=== PATIENT | male | born 1995 | race African-American/Black ===

== ENCOUNTER 2019-06-18 10:41 | Inpatient (IN) ==
[2019-06-18] MEDS ORDERED: PIPERACILLIN/TAZOBACTAM 3,375 MG in SODIUM CHLORIDE 0.9% 100 ML IV STA (11:01)
[2019-06-18] MEDS ORDERED: SODIUM CHLORIDE 0.9% 1,000 ML IV STA ×2 (11:01→12:02)
[2019-06-18] MEDS ORDERED: ACETAMINOPHEN 500 MG TABLET PO STA (11:01)
[2019-06-18] MEDS ORDERED: VANCOMYCIN INJ 1,000 MG in SODIUM CHLORIDE 0.9% 250 ML IV STA ×2 (11:01→13:19)
[2019-06-18 11:25] LABS: Basophils % 0.1 % (0.0-0.8); Hematocrit 38.3 VOL% (42.0-52.0); Hemoglobin 12.8 GM/DL (14.0-18.0); Immature Granulocytes % 0.9 %; Immature Granulocytes Absolute 0.08 #; Lymphocytes # 0.6 10*3/uL (1.4-4.0); Lymphocytes % 5.9 % (21.2-54.2); Mean Corpuscular HGB Conc 33.4 GM/DL (32-36); Mean Corpuscular Volume 87.8 FL (87-102); Mean Platelet Volume 10.6 FL (9.6-12.0); Monocytes % 10.1 % (1.7-12.7); Platelet Count 141 T/CUMM (130-400); Red Blood Count 4.36 MC/CUMM (3.8-5.5); Red Cell Distribution Width 13.3 % (9.3-17.3); White Blood Count 9.3 T/CUMM (4-12)
[2019-06-18 11:50] LABS: Albumin 3.6 G/DL (3.4-5.0); Bilirubin,Total 0.8 MG/DL (0.2-1.0); Calcium 8.7 MG/DL (8.5-10.1); Osmolality,Calculated 274.8 MOS/KG (273-304); Total Protein 7.8 G/DL (6.4-8.3)
[2019-06-18 12:00] LABS: Band Neutrophils 7 % (0-10); Hypochromasia 1+; Lymphocytes 7 % (20-55); Platelet Estimate Adequate; Segmented Neutrophils 75 % (50-85); Total Cells Counted 100
[2019-06-18 12:03] LABS: Apearance,Urine Slightly Hazy (Clear); Bacteria,Urine Many /HPF (Few); Bilirubin,Urine Negative (Negative); Blood, Urine Small mg/dL (Negative); Glucose,Urine (UA) Negative (Negative); Hyaline Casts,Urine 1 /LPF (0-3); Ketones,Urine 5 mg/dL (Negative); Mucus,Urine Occasional /LPF (Occasional); Nitrite,Urine Negative (Negative); Protein,Urine 30 MG/DL; RBC,Urine 53 /HPF (0-4); Squamous Epithelial Cell,Urine Occasional /HPF (0-10); Urine Color Yellow (Yellow); Urine Specific Gravity 1.015 (1.001-1.035); Urine Urobilinogen < 2.0 EU/DL (0.2-1.0); WBC,Urine 334 /HPF (0-6)
[2019-06-18 12:52] LABS: Sedimentation Rate-Westergren 30 MM/HR (0-15)
[2019-06-18] MEDS ORDERED: SODIUM CHLORIDE 0.9% 2,050 ML IV ONE (13:59)
[2019-06-18] MEDS ORDERED: ONDANSETRON 4 MG/2 ML VIAL IV PRN (14:02)
[2019-06-18 14:13] LABS: ABG Base Excess -3.2 MMOL/L (-2.5-2.5); ABG HCO3 20.7 MMOL/L (20-26); ABG Oxygen Saturation 96.5 % (95-100); ABG PCO2 33.5 MM HG (35-48); ABG PH 7.409 (7.35-7.45); ABG PO2 88.2 MM HG (80-95); ABG TCO2 21.7 MMOL/L (23-27)
[2019-06-18] MEDS: SODIUM CHLORIDE 0.9% 1,000 ML IV SCH (16:23)
[2019-06-18] MEDS: TAMSULOSIN 0.4 MG CAPSULE PO SCH (17:17)
[2019-06-18] MEDS: PIPERACILLIN/TAZOBACTAM 3,375 MG in SODIUM CHLORIDE 0.9% 100 ML IV SCH (20:46)
[2019-06-18] MEDS: HEPARIN 5,000 UNIT/1 ML VIAL SUBCUT SCH (21:34)
[2019-06-18] MEDS: ACETAMINOPHEN 325 MG TABLET PO PRN (21:40)
[2019-06-18] MEDS ORDERED: SODIUM CHLORIDE 0.9% 1,000 ML IV ONE (23:56)
[2019-06-19] MEDS: VANCOMYCIN INJ 1,000 MG in SODIUM CHLORIDE 0.9% 250 ML IV SCH ×2 (02:35→15:50)
[2019-06-19 04:43] LABS: Basophils % 0.2 % (0.0-0.8); Hematocrit 32.8 VOL% (42.0-52.0); Hemoglobin 10.7 GM/DL (14.0-18.0); Immature Granulocytes % 0.6 %; Immature Granulocytes Absolute 0.06 #; Lymphocytes # 1.2 10*3/uL (1.4-4.0); Lymphocytes % 12.7 % (21.2-54.2); Mean Corpuscular HGB Conc 32.6 GM/DL (32-36); Mean Corpuscular Volume 89.1 FL (87-102); Mean Platelet Volume 11.5 FL (9.6-12.0); Monocytes % 18.3 % (1.7-12.7); Neutrophils % 68.2 % (38.7-73.9); Platelet Count 131 T/CUMM (130-400); Red Blood Count 3.68 MC/CUMM (3.8-5.5); Red Cell Distribution Width 13.5 % (9.3-17.3); White Blood Count 9.3 T/CUMM (4-12)
[2019-06-19 05:06] LABS: Albumin 2.8 G/DL (3.4-5.0); Bilirubin,Total 1.2 MG/DL (0.2-1.0); Calcium 7.6 MG/DL (8.5-10.1); Osmolality,Calculated 281.3 MOS/KG (273-304); Total Protein 6.5 G/DL (6.4-8.3)
[2019-06-19 05:09] LABS: Band Neutrophils 10 % (0-10); Eosinophils 1 % (0-10); Hypochromasia 1+; Lymphocytes 10 % (20-55); Segmented Neutrophils 65 % (50-85); Total Cells Counted 100
[2019-06-19 05:10] LABS: Microcytosis Slight; Platelet Estimate Adequate
[2019-06-19] MEDS: ACETAMINOPHEN 325 MG TABLET PO PRN (05:24)
[2019-06-19] MEDS: PIPERACILLIN/TAZOBACTAM 3,375 MG in SODIUM CHLORIDE 0.9% 100 ML IV SCH (05:26)
[2019-06-19] MEDS: SODIUM CHLORIDE 0.9% 1,000 ML IV SCH ×4 (05:26→22:21)
[2019-06-19] MEDS: HEPARIN 5,000 UNIT/1 ML VIAL SUBCUT SCH ×3 (05:27→21:27)
[2019-06-19] MEDS: MEROPENEM 500 MG in SODIUM CHLORIDE 0.9% 100 ML IV SCH ×3 (07:38→18:19)
[2019-06-19] MEDS ORDERED: SODIUM CHLORIDE 0.9% 500 ML IV ONE (07:48)
[2019-06-19] MEDS ORDERED: MINERAL OIL ENEMA 133 ML BOTTLE RECTAL ONE (10:24)
[2019-06-19] MEDS ORDERED: MAGNESIUM SULF RIDER 4 GM in PREMIX 1 EACH IV PRN (10:28)
[2019-06-19] MEDS: TAMSULOSIN 0.4 MG CAPSULE PO SCH (10:32)
[2019-06-19] MEDS: PANTOPRAZOLE 40 MG TABLET PO SCH (10:32)
[2019-06-19] MEDS: MAGNESIUM SULF RIDER 2 GM in PREMIX 1 EACH IV PRN (11:30)
[2019-06-19] MEDS: POTASSIUM CHLORIDE RIDER 10 MEQ in PREMIX 1 EACH IV PRN (13:30)
[2019-06-20] MEDS: VANCOMYCIN INJ 1,000 MG in SODIUM CHLORIDE 0.9% 250 ML IV SCH ×3 (01:04→22:36)
[2019-06-20] MEDS: SODIUM CHLORIDE 0.9% 1,000 ML IV SCH ×4 (01:15→21:00)
[2019-06-20] MEDS: MEROPENEM 500 MG in SODIUM CHLORIDE 0.9% 100 ML IV SCH ×4 (01:15→18:02)
[2019-06-20 04:54] LABS: Basophils % 0.1 % (0.0-0.8); Eosinophils % 0.1 % (0.00-10.9); Hematocrit 31.1 VOL% (42.0-52.0); Hemoglobin 10.1 GM/DL (14.0-18.0); Immature Granulocytes % 0.7 %; Immature Granulocytes Absolute 0.06 #; Lymphocytes # 1.9 10*3/uL (1.4-4.0); Lymphocytes % 22.1 % (21.2-54.2); Mean Corpuscular HGB Conc 32.5 GM/DL (32-36); Mean Corpuscular Volume 89.6 FL (87-102); Mean Platelet Volume 11.3 FL (9.6-12.0); Monocytes % 24.3 % (1.7-12.7); Neutrophils % 52.7 % (38.7-73.9); Platelet Count 140 T/CUMM (130-400); Red Blood Count 3.47 MC/CUMM (3.8-5.5); Red Cell Distribution Width 13.8 % (9.3-17.3); White Blood Count 8.6 T/CUMM (4-12)
[2019-06-20 05:38] LABS: Band Neutrophils 6 % (0-10); Lymphocytes 22 % (20-55); Metamyelocytes 2 %; Platelet Estimate Adequate; Segmented Neutrophils 48 % (50-85); Total Cells Counted 100
[2019-06-20 05:41] LABS: Albumin 2.6 G/DL (3.4-5.0); Bilirubin,Total 1.7 MG/DL (0.2-1.0); Calcium 7.7 MG/DL (8.5-10.1); Osmolality,Calculated 276.4 MOS/KG (273-304); Total Protein 6.2 G/DL (6.4-8.3)
[2019-06-20] MEDS: HEPARIN 5,000 UNIT/1 ML VIAL SUBCUT SCH ×3 (06:00→21:01)
[2019-06-20] MEDS: TAMSULOSIN 0.4 MG CAPSULE PO SCH (08:20)
[2019-06-20] MEDS: PANTOPRAZOLE 40 MG TABLET PO SCH (08:23)
[2019-06-20] MEDS: ACETAMINOPHEN 325 MG TABLET PO PRN ×2 (08:23→19:53)
[2019-06-20] MEDS: POTASSIUM CHLORIDE RIDER 10 MEQ in PREMIX 1 EACH IV PRN ×3 (08:24→10:57)
[2019-06-20] MEDS ORDERED: SODIUM PHOSPHATE INJ 15 MMOL in SODIUM CHLORIDE 0.9% 250 ML IV ONE (09:00)
[2019-06-20] MEDS: POLYETHYLENE GLYCOL POWDER 17 GM PACK PO SCH ×2 (09:12→21:26)
[2019-06-20] MEDS: MAGNESIUM SULF RIDER 2 GM in PREMIX 1 EACH IV PRN (11:56)
[2019-06-20] MEDS: BISACODYL 10 MG SUPP RECTAL PRN (14:43)
[2019-06-20] MEDS ORDERED: SODIUM CHLORIDE 0.9% 250 ML IV ONE (22:27)
[2019-06-21] MEDS: SODIUM CHLORIDE 0.9% 1,000 ML IV SCH ×4 (05:02→22:53)
[2019-06-21] MEDS: VANCOMYCIN INJ 1,000 MG in SODIUM CHLORIDE 0.9% 250 ML IV SCH (05:03)
[2019-06-21] MEDS: HEPARIN 5,000 UNIT/1 ML VIAL SUBCUT SCH ×3 (05:04→21:37)
[2019-06-21 05:19] LABS: Basophils % 0.2 % (0.0-0.8); Eosinophils % 0.6 % (0.00-10.9); Hemoglobin 10.5 GM/DL (14.0-18.0); Immature Granulocytes Absolute 0.05 #; Lymphocytes # 1.2 10*3/uL (1.4-4.0); Lymphocytes % 24.5 % (21.2-54.2); Mean Corpuscular HGB Conc 32.8 GM/DL (32-36); Mean Corpuscular Volume 87.9 FL (87-102); Mean Platelet Volume 10.7 FL (9.6-12.0); Monocytes % 24.5 % (1.7-12.7); Neutrophils % 49.2 % (38.7-73.9); Platelet Count 161 T/CUMM (130-400); Red Blood Count 3.64 MC/CUMM (3.8-5.5); Red Cell Distribution Width 13.5 % (9.3-17.3); White Blood Count 4.9 T/CUMM (4-12)
[2019-06-21 05:39] LABS: Albumin 2.5 G/DL (3.4-5.0); Bilirubin,Total 1.1 MG/DL (0.2-1.0); Calcium 7.8 MG/DL (8.5-10.1); Osmolality,Calculated 277.4 MOS/KG (273-304); Total Protein 6.4 G/DL (6.4-8.3)
[2019-06-21 05:42] LABS: Band Neutrophils 3 % (0-10); Eosinophils 1 % (0-10); Hypochromasia 1+; Lymphocytes 30 % (20-55); Platelet Estimate Adequate; Segmented Neutrophils 45 % (50-85); Total Cells Counted 100
[2019-06-21 05:43] LABS: Microcytosis Slight; Ovalocytes Slight
[2019-06-21] MEDS: POTASSIUM CHLORIDE RIDER 10 MEQ in PREMIX 1 EACH IV PRN ×2 (06:23→09:34)
[2019-06-21] MEDS: ACETAMINOPHEN 325 MG TABLET PO PRN ×2 (08:00→21:36)
[2019-06-21] MEDS: PANTOPRAZOLE 40 MG TABLET PO SCH (08:00)
[2019-06-21] MEDS: TAMSULOSIN 0.4 MG CAPSULE PO SCH (08:00)
[2019-06-21] MEDS: POLYETHYLENE GLYCOL POWDER 17 GM PACK PO SCH ×2 (08:01→21:37)
[2019-06-21] MEDS: MEROPENEM 500 MG in SODIUM CHLORIDE 0.9% 100 ML IV SCH ×2 (08:34)
[2019-06-21] MEDS: LEVOFLOXACIN INJ 750 MG in PREMIX 1 EACH IV SCH (10:15)
[2019-06-21] MEDS ORDERED: SODIUM PHOSPHATE INJ 15 MMOL in SODIUM CHLORIDE 0.9% 250 ML IV ONE (11:00)
[2019-06-21] MEDS ORDERED: BACLOFEN 10 MG TABLET PO PRN (16:26)
[2019-06-21] MEDS: ASCORBIC ACID 500 MG TABLET PO SCH (21:36)
[2019-06-22] MEDS: HEPARIN 5,000 UNIT/1 ML VIAL SUBCUT SCH (05:39)
[2019-06-22] MEDS: SODIUM CHLORIDE 0.9% 1,000 ML IV SCH (05:39)
[2019-06-22 06:34] LABS: Hematocrit 32.8 VOL% (42.0-52.0); Hemoglobin 10.9 GM/DL (14.0-18.0); Mean Corpuscular HGB Conc 33.2 GM/DL (32-36); Mean Corpuscular Volume 86.8 FL (87-102); Mean Platelet Volume 10.5 FL (9.6-12.0); Platelet Count 201 T/CUMM (130-400); Red Blood Count 3.78 MC/CUMM (3.8-5.5); Red Cell Distribution Width 13.7 % (9.3-17.3); White Blood Count 5.4 T/CUMM (4-12)
[2019-06-22 06:35] LABS: Basophils % 0.2 % (0.0-0.8); Eosinophils # 0.1 10*3/uL (0.0-0.87); Eosinophils % 1.3 % (0.00-10.9); Immature Granulocytes % 2.6 %; Immature Granulocytes Absolute 0.14 #; Lymphocytes # 1.7 10*3/uL (1.4-4.0); Lymphocytes % 30.7 % (21.2-54.2); Monocytes % 23.5 % (1.7-12.7); Neutrophils % 41.7 % (38.7-73.9)
[2019-06-22 07:00] LABS: Alanine Aminotransferase 48 U/L (16-61); Albumin 2.6 G/DL (3.4-5.0); Alkaline Phosphatase 81 U/L (45-117); Aspartate Amino Transferase 23 U/L (0-37); Band Neutrophils 2 % (0-10); Bilirubin,Total < 0.39 MG/DL (0.2-1.0); Blood Urea Nitrogen 5 MG/DL (7-18); Calcium 8.2 MG/DL (8.5-10.1); Eosinophils 1 % (0-10); Estimated Glom Filtration Rate 159 ML/MIN; Glucose 106 MG/DL (74-106); Hypochromasia 1+; Lymphocytes 23 % (20-55); Microcytosis 1+; Myelocytes 2 %; Osmolality,Calculated 275.4 MOS/KG (273-304); Segmented Neutrophils 54 % (50-85); Total Cells Counted 100; Total Protein 6.9 G/DL (6.4-8.3)
[2019-06-22 07:01] LABS: Atypical Lymphocytes Few
[2019-06-22 07:45] VITALS: BP 134/73
[2019-06-22] MEDS: PANTOPRAZOLE 40 MG TABLET PO SCH (09:39)
[2019-06-22] MEDS: ASCORBIC ACID 500 MG TABLET PO SCH (09:39)
[2019-06-22] MEDS: POLYETHYLENE GLYCOL POWDER 17 GM PACK PO SCH (09:39)
[2019-06-22] MEDS: TAMSULOSIN 0.4 MG CAPSULE PO SCH (09:39)
[2019-06-22] MEDS: LEVOFLOXACIN INJ 750 MG in PREMIX 1 EACH IV SCH (09:43)
[2019-06-22] MEDS: BISACODYL 10 MG SUPP RECTAL PRN (10:04)
== END 2019-06-22 12:46 | disposition home or self-care (01) | DRG 872 ==
LOC: N.EDINP 10:41 → N.ED 10:41 → SUATTDRO 14:38 → N.3E 15:19 → N.ICU 06-19 07:52 → N.2E 06-21 16:25
PROVIDERS: ADMIT Nurse Practitioner; ATTEND Internal Medicine